=== PATIENT | male | born 1950 | race Caucasian/White ===

== ENCOUNTER → 2019-10-19 | Emergency (ER) | payer SELFPAY ==
[2019-10-19 08:27] LABS: BASO % 0.4 % (0.0-1.0); EOS # 0.2 10*3/uL (0.0-0.4); EOS % 1.7 % (1.0-4.0); HEMATOCRIT 45.6 % (42.0-52.0); HEMOGLOBIN 14.8 g/dl (14.0-18.0); LYMPH # 3.7 10*3/uL (1.3-4.4); LYMPH % 36.4 % (27.0-41.0); MEAN CELL VOLUME 92.7 fl (80.0-94.0); MEAN CORPUSCULAR HGB 30.1 pg (27.0-31.0); MEAN CORPUSCULAR HGB CONC 32.5 g/dl (33.0-37.0); MEAN PLATELET VOLUME 10.8 fl (9.6-12.3); MONO # 0.7 10*3/uL (0.1-1.0); MONO % 6.9 % (3.0-9.0); NEUT # 5.6 10*3/uL (2.3-7.9); NEUT % 54.2 % (47.0-73.0); PLATELET COUNT AUTOMATED 171 10*3/uL (130-400); RED BLOOD COUNT 4.92 10*6/uL (4.50-5.90); RED CELL DISTRI WIDTH 13.4 % (0-14.5); WHITE BLOOD COUNT 10.3 10*3/uL (4.8-10.8)
[2019-10-19 08:46] LABS: ALBUMIN 3.7 gm/dl (3.1-4.5); CREATININE 1.73 mg/dL (0.70-1.30); POTASSIUM 3.9 mmol/L (3.5-5.1); TOTAL PROTEIN 6.7 gm/dL (6.4-8.2); TROPONIN I 0.029 ng/ml (<0.045)
== END ==
LOC: ED 08:06
PROVIDERS: Emergency Medicine
DX: R07.9 Chest pain, unspecified (principal); R06.00 Dyspnea, unspecified; J34.89 Other specified disorders of nose and nasal sinuses; R61 Generalized hyperhidrosis; R06.02 Shortness of breath; W18.39XA Other fall on same level, initial encounter; Y93.89 Activity, other specified; Y92.89 Other specified places as the place of occurrence of the external cause; Y99.8 Other external cause status